=== PATIENT | male | born 1970 | race Caucasian/White ===

== ENCOUNTER 2018-03-11 14:08 | Emergency (ER) | payer OTHER ==
[~2018-03-11] VITALS: Ht 190.5 cm; Wt 108.9 kg
[2018-03-11] MEDS ORDERED: MORPHINE SULFAT15 M3 PO (15:46)
[2018-03-11 16:44] VITALS: BP 153/86
== END 2018-03-11 16:45 | disposition home or self-care (01) ==
LOC: ER 14:08
DX: M66.821 Spontaneous rupture of other tendons, right upper arm (principal)